=== PATIENT | male | born 1960 | race Caucasian/White ===

== ENCOUNTER 2023-05-20 10:30 | Emergency (ER) | payer MEDICAID ==
[~2023-05-20] VITALS: Ht 177.8 cm; Wt 68.0 kg
[2023-05-20 13:22] VITALS: BP 120/76; TEMP 98; O2SAT 97
== END 2023-05-20 13:22 | disposition home or self-care (01) ==
LOC: ER 11:00
DX: S62.616A Displaced fracture of proximal phalanx of right little finger, initial encounter for closed fracture (principal); Y04.0XXA Assault by unarmed brawl or fight, initial encounter; Y93.89 Activity, other specified; Y92.89 Other specified places as the place of occurrence of the external cause; Y99.8 Other external cause status
CPT/HCPCS: 73130-TC